=== PATIENT | female | born 1930 | race Caucasian/White ===

== ENCOUNTER 2017-11-06 10:14 | Inpatient (IN) | payer OTHER, MEDICAID ==
[~2017-11-06] VITALS: Ht 165.1 cm; Wt 50.4 kg
[2017-11-06 10:47] LABS: Basophils # (auto) 0.1 uL; Basophils % (auto) 1.2 % (0.0-2.0); Eosinophils # (auto) 0.2 uL; Eosinophils % (auto) 2.6 % (0.0-7.0); Hematocrit 36.9 % (36.0-46.0); Hemoglobin 11.9 g/dL (12.2-16.2); Lymphocytes # (auto) 1.9 uL; Mean Corpuscular Hemoglobin 29.9 pg (28.0-32.0); Mean Corpuscular Hgb Conc. 32.3 g/dL (32.0-36.0); Mean Corpuscular Volume 92.4 fL (80.0-100.0); Monocytes % (auto) 15.9 % (0.0-12.0); Neutrophils # (auto) 2.9 uL; Neutrophils % (auto) 48.3 % (37.0-80.0); Nucleated Red Blood Cells % 0.1 %; Platelet Count (auto) 327 10^3/uL (140-450); Red Blood Cells 3.99 10^6/uL (4.0-5.20); Red Cell Distribution Width 14.5 % (11.8-14.3)
[2017-11-06 11:05] LABS: Alanine Aminotransferase 10 U/L (13-56); Albumin 3.2 g/dL (3.4-5.0); Alkaline Phosphatase 87 U/L (45-117); Anion Gap 11 (5-15); Aspartate Aminotransferase 16 U/L (15-37); BUN/Creatinine Ratio 13.7; Bilirubin, Total 0.6 mg/dL (0.2-1.0); Blood Alcohol < 3.0 mg/dL (0-5); Blood Urea Nitrogen 20 mg/dL (7-18); Calcium 9.5 mg/dL (8.5-10.1); Carbon Dioxide 21 mmol/L (21-32); Chloride 107 mmol/L (98-107); GFR African American 44 mL/min; GFR Non-African American 36 mL/min; Glucose 94 mg/dL (74-106); Magnesium 2.6 mg/dL (1.6-2.6); Potassium 3.2 mmol/L (3.5-5.1); Sodium 139 mmol/L (136-145); Total Protein 8.1 g/dL (6.4-8.2)
[2017-11-06] MEDS ORDERED: POTASSIUM CHL 20 Meq TABLET PO ONE (13:00)
[2017-11-06] MEDS ORDERED: HYDROcodone-ACET 5/325MG TAB PO PRN (13:00)
[2017-11-06] MEDS ORDERED: amLODIPine BESYLATE 5 MG TAB PO ONE (13:00)
[2017-11-06] MEDS: SODIUM CHLORIDE 0.9% 1,000 ML IV SCH (13:56)
[2017-11-06 20:05] VITALS: BP 125/72
[2017-11-06 23:36] VITALS: BP 125/72
[2017-11-07] MEDS: SODIUM CHLORIDE 0.9% 1,000 ML IV SCH ×2 (01:54→14:44)
[2017-11-07 05:33] VITALS: BP 138/73
[2017-11-07 05:35] LABS: Basophils # (auto) 0.1 uL; Basophils % (auto) 1.3 % (0.0-2.0); Eosinophils # (auto) 0.1 uL; Hemoglobin 11.5 g/dL (12.2-16.2); Lymphocytes # (auto) 1.6 uL; Lymphocytes % (auto) 30.8 % (10.0-50.0); Mean Corpuscular Hemoglobin 30.1 pg (28.0-32.0); Mean Corpuscular Hgb Conc. 32.8 g/dL (32.0-36.0); Mean Corpuscular Volume 91.6 fL (80.0-100.0); Monocytes # (auto) 0.7 uL; Monocytes % (auto) 13.1 % (0.0-12.0); Neutrophils # (auto) 2.8 uL; Neutrophils % (auto) 53.8 % (37.0-80.0); Platelet Count (auto) 316 10^3/uL (140-450); Red Blood Cells 3.82 10^6/uL (4.0-5.20); Red Cell Distribution Width 14.6 % (11.8-14.3); White Blood Cell 5.3 10^3/uL (4.4-10.8)
[2017-11-07 06:19] LABS: Potassium 3.5 mmol/L (3.5-5.1)
[2017-11-07 06:30] LABS: BUN/Creatinine Ratio 15.7; Calcium 9.1 mg/dL (8.5-10.1)
[2017-11-07 09:00] VITALS: BP 126/65
[2017-11-07] MEDS: amLODIPine BESYLATE 5 MG TAB PO SCH (11:21)
[2017-11-07] MEDS ORDERED: LEVOTHYROXINE SODIUM 100 MCG/5 ML INJ IV ONE (12:00)
[2017-11-07 13:00] VITALS: BP 118/93
[2017-11-07 15:44] LABS: Urine Bacteria MANY /hpf (None Seen); Urine Blood TRACE /uL (Negative); Urine Mucus FEW (None Seen); Urine Specific Gravity 1.014 (1.001-1.035); Urine WBC 239 /hpf (0 - 5); Urine WBC Clumps PRESENT /hpf (None Seen)
[2017-11-07 17:00] VITALS: BP 119/70
[2017-11-08] MEDS: SODIUM CHLORIDE 0.9% 1,000 ML IV SCH ×2 (04:52→18:24)
[2017-11-08 08:00] VITALS: BP 126/65
[2017-11-08 08:08] LABS: BUN/Creatinine Ratio 15.9; Calcium 9.1 mg/dL (8.5-10.1); Potassium 3.2 mmol/L (3.5-5.1)
[2017-11-08] MEDS: amLODIPine BESYLATE 5 MG TAB PO SCH (09:36)
[2017-11-08] MEDS ORDERED: LEVOTHYROXINE SODIUM 100 MCG/5 ML INJ IV SCH (10:00)
[2017-11-08] MEDS ORDERED: cefTRIAXone 1GM/10ml IVPUSH 10 ML IV ONE (11:45)
[2017-11-08] MEDS ORDERED: LEVOTHYROXINE SODIUM 100 MCG/5 ML INJ IV ONE (11:45)
[2017-11-08] MEDS ORDERED: POTASSIUM CHL 20 Meq TABLET PO ONE (11:45)
[2017-11-08] MEDS ORDERED: LORA1TAB12 PO (16:00)
[2017-11-08] MEDS ORDERED: TIOTCAP IN (16:00)
[2017-11-08] MEDS ORDERED: SIMV10TA84 PO (16:00)
[2017-11-08] MEDS ORDERED: AMLO5TAB2 PO (16:00)
[2017-11-08] MEDS ORDERED: LEV50T PO (16:00)
[2017-11-08] MEDS ORDERED: OME20T PO (16:00)
[2017-11-08 22:00] VITALS: BP 150/85
[2017-11-08] MEDS: LORazepam 0.5 MG TAB PO PRN (22:01)
[2017-11-09 05:07] VITALS: BP 137/70
[2017-11-09 08:00] VITALS: BP 122/64
[2017-11-09 09:00] VITALS: BP 117/70
[2017-11-09] MEDS: cefTRIAXone 1GM/10ml IVPUSH 10 ML IV SCH (09:09)
[2017-11-09] MEDS: LEVOTHYROXINE SODIUM 100 MCG/5 ML INJ IV SCH (09:09)
[2017-11-09] MEDS: SODIUM CHLORIDE 0.9% 1,000 ML IV SCH ×2 (09:10→21:00)
[2017-11-09] MEDS: amLODIPine BESYLATE 5 MG TAB PO SCH (09:17)
[2017-11-09 13:00] VITALS: BP 107/76
[2017-11-09 17:00] VITALS: BP 131/75
[2017-11-09 22:00] VITALS: BP 141/73
[2017-11-10 04:30] VITALS: BP 115/73
[2017-11-10 06:33] LABS: Potassium 3.2 mmol/L (3.5-5.1)
[2017-11-10 06:36] LABS: BUN/Creatinine Ratio 11.7; Calcium 8.6 mg/dL (8.5-10.1)
[2017-11-10 09:00] VITALS: BP 130/65
[2017-11-10] MEDS: LEVOTHYROXINE SODIUM 100 MCG/5 ML INJ IV SCH (10:01)
[2017-11-10] MEDS: cefTRIAXone 1GM/10ml IVPUSH 10 ML IV SCH (10:01)
[2017-11-10] MEDS: amLODIPine BESYLATE 5 MG TAB PO SCH (10:02)
[2017-11-10] MEDS: SODIUM CHLORIDE 0.9% 1,000 ML IV SCH ×2 (10:20→23:40)
[2017-11-10] MEDS ORDERED: POTASSIUM CHL 20 Meq TABLET PO ONE (12:45)
[2017-11-10] MEDS ORDERED: LEVOTHYROXINE SODIUM 100 MCG/5 ML INJ IV ONE (12:45)
[2017-11-10 13:00] VITALS: BP 101/54
[2017-11-10 17:00] VITALS: BP 140/81
[2017-11-10] MEDS: LORazepam 0.5 MG TAB PO PRN (21:44)
[2017-11-10] MEDS: ASCORBIC ACID 500 MG TAB PO SCH (21:44)
[2017-11-10] MEDS: BOOST PLUS 8 ounce PO SCH (21:44)
[2017-11-10 22:00] VITALS: BP 137/68
[2017-11-11 05:16] VITALS: BP 126/81
[2017-11-11] MEDS: BOOST PLUS 8 ounce PO SCH ×3 (06:46→21:44)
[2017-11-11 09:12] VITALS: BP 127/52
[2017-11-11] MEDS: amLODIPine BESYLATE 5 MG TAB PO SCH (10:00)
[2017-11-11] MEDS: LEVOTHYROXINE SODIUM 100 MCG/5 ML INJ IV SCH (10:03)
[2017-11-11] MEDS: MULTIPLE VITAMINS W/ MINERALS TAB PO SCH (10:03)
[2017-11-11] MEDS: ASCORBIC ACID 500 MG TAB PO SCH ×2 (10:03→21:44)
[2017-11-11] MEDS: cefTRIAXone 1GM/10ml IVPUSH 10 ML IV SCH (10:03)
[2017-11-11] MEDS ORDERED: POTASSIUM CHL 20 Meq TABLET PO ONE (10:45)
[2017-11-11] MEDS: SODIUM CHLORIDE 0.9% 1,000 ML IV SCH (13:00)
[2017-11-11 13:10] VITALS: BP 116/79
[2017-11-11 17:02] VITALS: BP 143/76
[2017-11-11 21:32] VITALS: BP 116/40
[2017-11-11] MEDS: LORazepam 0.5 MG TAB PO PRN (21:44)
[2017-11-12] MEDS: SODIUM CHLORIDE 0.9% 1,000 ML IV SCH ×2 (02:20→15:47)
[2017-11-12] MEDS: BOOST PLUS 8 ounce PO SCH ×3 (04:56→21:43)
[2017-11-12 05:50] VITALS: BP 133/73
[2017-11-12 07:02] LABS: BUN/Creatinine Ratio 19.6; Calcium 9.3 mg/dL (8.5-10.1)
[2017-11-12] MEDS: LEVOTHYROXINE SODIUM 100 MCG/5 ML INJ IV SCH (09:29)
[2017-11-12] MEDS: cefTRIAXone 1GM/10ml IVPUSH 10 ML IV SCH (09:29)
[2017-11-12] MEDS: amLODIPine BESYLATE 5 MG TAB PO SCH (09:30)
[2017-11-12] MEDS: MULTIPLE VITAMINS W/ MINERALS TAB PO SCH (09:30)
[2017-11-12] MEDS: ASCORBIC ACID 500 MG TAB PO SCH ×2 (09:30→21:42)
[2017-11-12 18:14] VITALS: BP 132/60
[2017-11-12 22:00] VITALS: BP 131/68
[2017-11-13] MEDS: LORazepam 0.5 MG TAB PO PRN (01:53)
[2017-11-13] MEDS: SODIUM CHLORIDE 0.9% 1,000 ML IV SCH (05:00)
[2017-11-13 05:14] VITALS: BP 122/67
[2017-11-13 09:00] VITALS: BP 138/56
[2017-11-13] MEDS: cefTRIAXone 1GM/10ml IVPUSH 10 ML IV SCH (09:28)
[2017-11-13] MEDS: LEVOTHYROXINE SODIUM 100 MCG/5 ML INJ IV SCH (09:31)
[2017-11-13] MEDS: ASCORBIC ACID 500 MG TAB PO SCH ×2 (09:36→21:42)
[2017-11-13] MEDS: MULTIPLE VITAMINS W/ MINERALS TAB PO SCH (09:37)
[2017-11-13] MEDS: BOOST PLUS 8 ounce PO SCH ×2 (09:39→21:43)
[2017-11-13] MEDS: amLODIPine BESYLATE 5 MG TAB PO SCH (09:46)
[2017-11-13] MEDS ORDERED: LORazepam 0.5 MG TAB PO PRN (11:00)
[2017-11-13] MEDS ORDERED: HYDROcodone-ACET 5/325MG TAB PO PRN (11:00)
[2017-11-13 13:00] VITALS: BP 112/60
[2017-11-13 17:00] VITALS: BP 116/58
[2017-11-13] MEDS: LEVOFLOXACIN 500 MG TAB PO SCH (20:53)
[2017-11-13 22:00] VITALS: BP 138/71
[2017-11-14 05:19] VITALS: BP 124/77
[2017-11-14] MEDS: BOOST PLUS 8 ounce PO SCH ×3 (06:21→21:52)
[2017-11-14] MEDS: LEVOTHYROXINE SODIUM 50 MCG TAB PO SCH (06:22)
[2017-11-14] MEDS ORDERED: DOCUSATE SOD 100 MG CAP PO PRN (07:45)
[2017-11-14 08:00] VITALS: BP 137/77
[2017-11-14 09:23] VITALS: BP 129/57
[2017-11-14] MEDS: LEVOFLOXACIN 500 MG TAB PO SCH (09:43)
[2017-11-14] MEDS: MULTIPLE VITAMINS W/ MINERALS TAB PO SCH (09:43)
[2017-11-14] MEDS: ASCORBIC ACID 500 MG TAB PO SCH ×2 (09:43→21:53)
[2017-11-14] MEDS: amLODIPine BESYLATE 5 MG TAB PO SCH (09:44)
[2017-11-14 12:13] VITALS: BP 150/75
[2017-11-14 17:23] VITALS: BP 144/57
[2017-11-14 21:53] VITALS: BP 143/67
[2017-11-15 04:47] VITALS: BP 158/75
[2017-11-15] MEDS: BOOST PLUS 8 ounce PO SCH (06:00)
[2017-11-15] MEDS: LEVOTHYROXINE SODIUM 50 MCG TAB PO SCH (07:00)
[2017-11-15] MEDS: LEVOFLOXACIN 500 MG TAB PO SCH (08:15)
[2017-11-15 08:28] VITALS: BP 128/67
[2017-11-15] MEDS: ASCORBIC ACID 500 MG TAB PO SCH (10:05)
[2017-11-15] MEDS: MULTIPLE VITAMINS W/ MINERALS TAB PO SCH (10:05)
[2017-11-15] MEDS: amLODIPine BESYLATE 5 MG TAB PO SCH (10:06)
[2017-11-15 11:18] VITALS: BP 128/67
== END 2017-11-15 12:12 | disposition home or self-care (01) | DRG 91 ==
LOC: ER 10:14 → TELE 10:15 → OVERFLOW 14:36 → EAST 20:17
PROVIDERS: ADMIT Internal Medicine; ATTEND Internal Medicine
DX: G92 Toxic encephalopathy (principal); N17.0 Acute kidney failure with tubular necrosis; N39.0 Urinary tract infection, site not specified; G45.9 Transient cerebral ischemic attack, unspecified; F20.9 Schizophrenia, unspecified; E03.9 Hypothyroidism, unspecified; M19.90 Unspecified osteoarthritis, unspecified site; B96.1 Klebsiella pneumoniae [K. pneumoniae] as the cause of diseases classified elsewhere; E86.0 Dehydration; F31.9 Bipolar disorder, unspecified; I11.9 Hypertensive heart disease without heart failure; F09 Unspecified mental disorder due to known physiological condition; M17.0 Bilateral primary osteoarthritis of knee; F41.9 Anxiety disorder, unspecified; Z71.3 Dietary counseling and surveillance
CPT/HCPCS: 36415; 70450; 71046; 73562; 80048; 80053; 80320; 81001; 82533; 82607; 83735; 84443; 84484; 85025; 87086; 87088; 87186; 93005; 96360; 97110; 97116; 97163; 97530; J3490